=== PATIENT | male | born 1960 | race Caucasian/White ===

== ENCOUNTER 2022-06-24 23:15 | Inpatient (IN) | payer OTHER, SELFPAY ==
[2022-06-25 01:28] VITALS: BMI 31.4
[2022-06-25] MEDS ORDERED: Acetaminophen 325 MG TAB PO PRN (02:23)
[2022-06-25] MEDS ORDERED: Ondansetron ODT 4 MG TAB PO PRN (02:23)
[2022-06-25 06:34] LABS: #Basophils 0.1 thou/uL (0.0-0.2); #Eosinphils 0.7 thou/uL (0.0-0.7); #Lymphocytes 1.3 thou/uL (1.20-3.40); #Monocytes 1.2 thou/uL (0.11-0.59); %Basophils 0.4 % (0.0-1.0); %Eosinophils 5.6 % (0.0-10.0); %Lymphocytes 10.5 % (21.0-51.0); %Monocytes 9.5 % (0.0-10.0); Hemoglobin 12.2 g/dL (14.0-18.0); Mean Corpuscular HGB CONC 31.6 g/dL (32.0-36.0); Mean Corpuscular Hemoglobin 26.9 pg (27.0-31.0); Mean Corpuscular Volume 85.1 fL (78.0-98.0); Mean Platelet Volume 7.4 fL (7.4-10.4); Platelet Count 267 thou/uL (130-400); RBC Distribution Width 14.9 % (11.5-14.5); Red Blood Cell (RBC) Count 4.55 mill/uL (4.70-6.10); White Blood Cell (WBC) Count 12.2 thou/uL (4.8-10.8)
[2022-06-25] MEDS: Ibuprofen 200 MG TAB PO PRN ×3 (06:35→19:58)
[2022-06-25 06:44] LABS: Hemoglobin A1c 5.8 % (4.0-6.0)
[2022-06-25 07:05] LABS: ALT (SGPT) 15 U/L (8-55); AST (SGOT) 15 U/L (5-34); Albumin 3.4 g/dL (3.4-4.8); Alkaline Phosphatase 75 U/L (40-110); Anion Gap 14 mmol/L (10-20); BUN (Urea Nitrogen) 20 mg/dL (8.4-25.7); Bilirubin, Total 0.9 mg/dL (0.2-1.2); Calc. Creatinine Clearance 114 mL/min (70-130); Calcium 8.8 mg/dL (7.8-10.44); Carbon Dioxide 22 mmol/L (23-31); Cardiac Risk 2.6 (Less than 4.5); Chloride 100 mmol/L (98-107); Cholesterol 68 mg/dl (< 200 Desired); Estimated GFR 81; Glucose 100 mg/dL (80-115); HDL Cholesterol 26 mg/dL (>60 Neg Risk); LDL Cholesterol, Calculated 21 mg/dL; Potassium 4.4 mmol/L (3.5-5.1); Protein, Total 7.4 g/dL (5.8-8.1); Sodium 132 mmol/L (136-145); Triglycerides 104 mg/dL (Less than 150)
[2022-06-25 07:09] LABS: HIV (1/2) Antibody/Antigen Non-Reactive (NonReactive); HIV 1/2 INDEX 0.24 S/CO (<1.00)
[2022-06-25] MEDS: Doxycycline 100 MG CAP PO SCH ×3 (08:24→20:00)
[2022-06-25] MEDS: Enoxaparin Sodium 40 MG/0.4 ML SYRINGE SC SCH (08:25)
[2022-06-25 11:23] LABS: Syphilis Antibody Nonreactive (Nonreactive); Syphilis Antibody Index 0.05 S/CO (<1.00 Non-Reactive)
[2022-06-25] MEDS: Melatonin 3 MG TAB PO PRN (22:57)
[2022-06-26] MEDS ORDERED: hydrOXYzine 10 MG/5 ML UDCUP PO PRN (02:48)
[2022-06-26] MEDS: hydrOXYzine 25 MG TAB PO PRN (03:42)
[2022-06-26 06:45] LABS: #Eosinphils 0.7 thou/uL (0.0-0.7); #Lymphocytes 1.6 thou/uL (1.20-3.40); #Monocytes 0.9 thou/uL (0.11-0.59); #Neutrophils 9.9 thou/uL (1.40-6.50); %Basophils 0.3 % (0.0-1.0); %Eosinophils 5.6 % (0.0-10.0); %Monocytes 6.9 % (0.0-10.0); %Neutrophils 75.2 % (42.0-75.0); Hemoglobin 12.1 g/dL (14.0-18.0); Mean Corpuscular HGB CONC 31.8 g/dL (32.0-36.0); Mean Corpuscular Hemoglobin 27.2 pg (27.0-31.0); Mean Corpuscular Volume 85.4 fL (78.0-98.0); Mean Platelet Volume 7.2 fL (7.4-10.4); Platelet Count 244 thou/uL (130-400); RBC Distribution Width 14.6 % (11.5-14.5); Red Blood Cell (RBC) Count 4.45 mill/uL (4.70-6.10); White Blood Cell (WBC) Count 13.2 thou/uL (4.8-10.8)
[2022-06-26 06:59] LABS: Anion Gap 13 mmol/L (10-20); BUN (Urea Nitrogen) 18 mg/dL (8.4-25.7); Calc. Creatinine Clearance 130 mL/min (70-130); Calcium 8.7 mg/dL (7.8-10.44); Carbon Dioxide 24 mmol/L (23-31); Chloride 102 mmol/L (98-107); Estimated GFR 95; Glucose 106 mg/dL (80-115); Potassium 4.3 mmol/L (3.5-5.1); Sodium 135 mmol/L (136-145)
[2022-06-26 08:17] LABS: Hep B Surface AG-Rflx Sendout Negative (Negative); Hepatitis B Core Total Negative (Negative); Hepatitis B Surface AB-Sendout Reactive (.)
[2022-06-26] MEDS: Doxycycline 100 MG CAP PO SCH ×3 (08:26→20:03)
[2022-06-26] MEDS: Enoxaparin Sodium 40 MG/0.4 ML SYRINGE SC SCH ×2 (08:26→10:02)
[2022-06-26] MEDS: Melatonin 3 MG TAB PO PRN (20:03)
[2022-06-27] MEDS ORDERED: Nicotine 21 MG PATCH TD SCH (02:00)
[2022-06-27] MEDS: Ketorolac Tromethamine 30 MG/ML VIAL IVP SCH ×2 (02:07→08:56)
[2022-06-27] MEDS: hydrOXYzine 25 MG TAB PO PRN (02:08)
[2022-06-27] MEDS: Nicotine 21 MG PATCH TD SCH (02:09)
[2022-06-27] MEDS: Enoxaparin Sodium 40 MG/0.4 ML SYRINGE SC SCH (08:56)
[2022-06-27] MEDS: Doxycycline 100 MG CAP PO SCH ×3 (08:57→22:58)
[2022-06-27] MEDS ORDERED: FLUoxetine HCl 10 MG CAP PO SCH (14:00)
[2022-06-27] MEDS ORDERED: Haloperidol Lactate 5 MG/ML VIAL IM SCH (14:25)
[2022-06-27] MEDS: traZODone HCl 50 MG TAB PO SCH ×2 (20:45→22:59)
[2022-06-27] MEDS: Atorvastatin Calcium 40 MG TAB PO SCH ×2 (20:45→22:57)
[2022-06-27] MEDS: Azelastine 137 MCG/Spray 30 ML NS SCH ×2 (20:45→22:53)
[2022-06-27] MEDS: Gabapentin 300 MG CAP PO SCH ×2 (20:45→22:58)
[2022-06-27] MEDS: Famotidine 20 MG TAB PO SCH ×2 (20:45→22:58)
[2022-06-27] MEDS: levETIRAcetam 500 mg/5 ml Oral Solution PO SCH (22:53)
[2022-06-28] MEDS ORDERED: Lorazepam (BATCHED) 2 MG/ML SYR SLOW IVP PRN (00:49)
[2022-06-28] MEDS: Ketorolac Tromethamine 30 MG/ML VIAL IVP PRN ×2 (02:32→12:04)
[2022-06-28 06:35] LABS: #Eosinphils 0.4 thou/uL (0.0-0.7); #Lymphocytes 1.7 thou/uL (1.20-3.40); #Monocytes 0.9 thou/uL (0.11-0.59); #Neutrophils 9.1 thou/uL (1.40-6.50); %Basophils 0.2 % (0.0-1.0); %Eosinophils 3.7 % (0.0-10.0); %Lymphocytes 14.3 % (21.0-51.0); %Neutrophils 74.8 % (42.0-75.0); Hemoglobin 12.3 g/dL (14.0-18.0); Mean Corpuscular HGB CONC 31.9 g/dL (32.0-36.0); Mean Corpuscular Hemoglobin 27.2 pg (27.0-31.0); Mean Corpuscular Volume 85.4 fL (78.0-98.0); Mean Platelet Volume 7.7 fL (7.4-10.4); Platelet Count 271 thou/uL (130-400); RBC Distribution Width 14.8 % (11.5-14.5); Red Blood Cell (RBC) Count 4.51 mill/uL (4.70-6.10); White Blood Cell (WBC) Count 12.1 thou/uL (4.8-10.8)
[2022-06-28] MEDS: Gabapentin 300 MG CAP PO SCH ×2 (09:16→20:25)
[2022-06-28] MEDS: Aspirin 81 mg Enteric Coated Tablet PO SCH (09:16)
[2022-06-28] MEDS: metFORMIN 500 MG TAB PO SCH (09:16)
[2022-06-28] MEDS: Famotidine 20 MG TAB PO SCH ×2 (09:16→20:25)
[2022-06-28] MEDS: Doxycycline 100 MG CAP PO SCH ×2 (09:16→20:21)
[2022-06-28] MEDS: Tamsulosin HCl 0.4 MG CAP PO SCH (09:16)
[2022-06-28] MEDS: Polyethylene Glycol 3350 17 GM Packet PO SCH (09:17)
[2022-06-28] MEDS: Enoxaparin Sodium 40 MG/0.4 ML SYRINGE SC SCH (09:17)
[2022-06-28] MEDS: levETIRAcetam 500 mg/5 ml Oral Solution PO SCH ×2 (09:17→20:20)
[2022-06-28] MEDS: FLUoxetine HCl 20 MG CAP PO SCH (09:17)
[2022-06-28] MEDS: Azelastine 137 MCG/Spray 30 ML NS SCH ×2 (09:18→20:25)
[2022-06-28] MEDS ORDERED: levETIRAcetam 500 MG/5 ML VIAL SLOW IVP SCH ×2 (10:00→12:15)
[2022-06-28] MEDS: traZODone HCl 50 MG TAB PO SCH (20:21)
[2022-06-28] MEDS: Atorvastatin Calcium 40 MG TAB PO SCH (20:22)
[2022-06-28] MEDS: Nicotine 21 MG PATCH TD SCH (20:26)
[2022-06-28] MEDS: Melatonin 3 MG TAB PO PRN (20:39)
[2022-06-29] MEDS: Ketorolac Tromethamine 30 MG/ML VIAL IVP PRN ×2 (03:48→14:39)
[2022-06-29] MEDS: Gabapentin 300 MG CAP PO SCH ×2 (08:05→20:29)
[2022-06-29] MEDS: levETIRAcetam 500 mg/5 ml Oral Solution PO SCH ×2 (08:06→20:29)
[2022-06-29] MEDS: FLUoxetine HCl 20 MG CAP PO SCH (08:06)
[2022-06-29] MEDS: metFORMIN 500 MG TAB PO SCH (08:06)
[2022-06-29] MEDS: Aspirin 81 mg Enteric Coated Tablet PO SCH (08:06)
[2022-06-29] MEDS: Doxycycline 100 MG CAP PO SCH ×2 (08:06→20:30)
[2022-06-29] MEDS: Famotidine 20 MG TAB PO SCH ×2 (08:06→20:30)
[2022-06-29] MEDS: Tamsulosin HCl 0.4 MG CAP PO SCH (08:06)
[2022-06-29] MEDS: Polyethylene Glycol 3350 17 GM Packet PO SCH (08:07)
[2022-06-29] MEDS: Azelastine 137 MCG/Spray 30 ML NS SCH ×2 (08:07→20:30)
[2022-06-29] MEDS: Enoxaparin Sodium 40 MG/0.4 ML SYRINGE SC SCH (08:07)
[2022-06-29] MEDS: traZODone HCl 50 MG TAB PO SCH (20:29)
[2022-06-29] MEDS: Atorvastatin Calcium 40 MG TAB PO SCH (20:30)
[2022-06-29] MEDS: Nicotine 21 MG PATCH TD SCH (20:30)
[2022-06-30] MEDS: Gabapentin 300 MG CAP PO SCH ×2 (08:53→20:28)
[2022-06-30] MEDS: metFORMIN 500 MG TAB PO SCH (08:55)
[2022-06-30] MEDS: Tamsulosin HCl 0.4 MG CAP PO SCH (08:55)
[2022-06-30] MEDS: Doxycycline 100 MG CAP PO SCH ×2 (08:55→20:28)
[2022-06-30] MEDS: Aspirin 81 mg Enteric Coated Tablet PO SCH (08:56)
[2022-06-30] MEDS: Polyethylene Glycol 3350 17 GM Packet PO SCH ×2 (08:56→20:28)
[2022-06-30] MEDS: Enoxaparin Sodium 40 MG/0.4 ML SYRINGE SC SCH (08:56)
[2022-06-30] MEDS: Famotidine 20 MG TAB PO SCH ×2 (08:56→20:28)
[2022-06-30] MEDS: FLUoxetine HCl 20 MG CAP PO SCH (08:56)
[2022-06-30] MEDS: Ketorolac Tromethamine 30 MG/ML VIAL IVP PRN ×2 (08:58→18:18)
[2022-06-30] MEDS: Azelastine 137 MCG/Spray 30 ML NS SCH ×2 (08:58→20:28)
[2022-06-30] MEDS: levETIRAcetam 500 mg/5 ml Oral Solution PO SCH ×2 (09:07→20:28)
[2022-06-30] MEDS: Atorvastatin Calcium 40 MG TAB PO SCH (20:28)
[2022-06-30] MEDS: Nicotine 21 MG PATCH TD SCH (20:28)
[2022-06-30] MEDS: traZODone HCl 50 MG TAB PO SCH (20:28)
[2022-07-01] MEDS ORDERED: Morphine 4 MG/ML VIAL SLOW IVP SCH (02:30)
[2022-07-01] MEDS: Tamsulosin HCl 0.4 MG CAP PO SCH (08:33)
[2022-07-01] MEDS: FLUoxetine HCl 20 MG CAP PO SCH (08:33)
[2022-07-01] MEDS: Famotidine 20 MG TAB PO SCH ×2 (08:33→22:32)
[2022-07-01] MEDS: Doxycycline 100 MG CAP PO SCH ×2 (08:33→22:32)
[2022-07-01] MEDS: Gabapentin 300 MG CAP PO SCH ×2 (08:34→22:31)
[2022-07-01] MEDS: metFORMIN 500 MG TAB PO SCH (08:34)
[2022-07-01] MEDS: Aspirin 81 mg Enteric Coated Tablet PO SCH (08:34)
[2022-07-01] MEDS: Polyethylene Glycol 3350 17 GM Packet PO SCH ×2 (08:35→22:30)
[2022-07-01] MEDS: levETIRAcetam 500 mg/5 ml Oral Solution PO SCH ×2 (08:35→22:30)
[2022-07-01] MEDS: Enoxaparin Sodium 40 MG/0.4 ML SYRINGE SC SCH (08:36)
[2022-07-01] MEDS: Azelastine 137 MCG/Spray 30 ML NS SCH ×2 (14:43→22:32)
[2022-07-01] MEDS: Ketorolac Tromethamine 30 MG/ML VIAL IVP PRN ×2 (15:45→22:39)
[2022-07-01 20:56] VITALS: BP 102/65; TEMP 98.3
[2022-07-01] MEDS: Nicotine 21 MG PATCH TD SCH (22:30)
[2022-07-01] MEDS: traZODone HCl 50 MG TAB PO SCH (22:32)
[2022-07-01] MEDS: Atorvastatin Calcium 40 MG TAB PO SCH (22:32)
[2022-07-02] MEDS: Doxycycline 100 MG CAP PO SCH (09:12)
[2022-07-02] MEDS: Azelastine 137 MCG/Spray 30 ML NS SCH (09:12)
[2022-07-02] MEDS: Aspirin 81 mg Enteric Coated Tablet PO SCH (09:12)
[2022-07-02] MEDS: Enoxaparin Sodium 40 MG/0.4 ML SYRINGE SC SCH (09:12)
[2022-07-02] MEDS: metFORMIN 500 MG TAB PO SCH (09:13)
[2022-07-02] MEDS: Gabapentin 300 MG CAP PO SCH (09:13)
[2022-07-02] MEDS: levETIRAcetam 500 mg/5 ml Oral Solution PO SCH (09:13)
[2022-07-02] MEDS: FLUoxetine HCl 20 MG CAP PO SCH (09:13)
[2022-07-02] MEDS: Famotidine 20 MG TAB PO SCH (09:13)
[2022-07-02] MEDS: Tamsulosin HCl 0.4 MG CAP PO SCH (09:14)
[2022-07-02] MEDS: Polyethylene Glycol 3350 17 GM Packet PO SCH (09:14)
[2022-07-02] MEDS: Ketorolac Tromethamine 30 MG/ML VIAL IVP PRN (09:18)
[2022-07-02] MEDS ORDERED: Ketorolac Tromethamine 10 MG TAB PO PRN (09:53)
[2022-07-04] MEDS ORDERED: Adalimumab 40 MG/0.8 ML SYRINGE SC SCH (09:00)
== END 2022-07-02 12:36 | disposition short-term general hospital (02) | DRG 880 ==
LOC: INTOOBSV 23:15 → T4-A 23:15 → OBSVTOIN 06-25 16:01
PROVIDERS: ADMIT Family Medicine; ATTEND Family Medicine
DX: R45.851 Suicidal ideations (principal); L73.2 Hidradenitis suppurativa; F60.81 Narcissistic personality disorder; Z20.822 Contact with and (suspected) exposure to COVID-19; G47.33 Obstructive sleep apnea (adult) (pediatric); F17.210 Nicotine dependence, cigarettes, uncomplicated; F10.10 Alcohol abuse, uncomplicated; F20.9 Schizophrenia, unspecified; R45.850 Homicidal ideations; B07.9 Viral wart, unspecified; E11.9 Type 2 diabetes mellitus without complications; G40.909 Epilepsy, unspecified, not intractable, without status epilepticus; Z88.0 Allergy status to penicillin; Z79.82 Long term (current) use of aspirin; Z79.84 Long term (current) use of oral hypoglycemic drugs; Z79.899 Other long term (current) drug therapy
CPT/HCPCS: 36415; 80048; 80053; 80061; 83036; 85025; 86704; 86706; 86780; 87070; 87205; 87340; 87389; 87591; 87811; 96372; 97139; G0378; J1630; J1650; J1885; J1953; J2270; U0003; U0005

== ENCOUNTER 2022-08-14 17:00 | Inpatient (IN) | payer BC, OTHER ==
[~2022-08-14 17:00] MED LIST: Iopamidol-370 76% 500 ML 1 ML ONE
[2022-08-14] MEDS ORDERED: Clindamycin/D5W 900 mg/50 ml Premix Bag ONE (17:40)
[2022-08-14 18:11] LABS: #Eosinphils 0.1 thou/uL (0.0-0.7); #Monocytes 1.2 thou/uL (0.11-0.59); #Neutrophils 14.2 thou/uL (1.40-6.50); %Basophils 0.1 % (0.0-1.0); %Eosinophils 0.7 % (0.0-10.0); %Lymphocytes 11.2 % (21.0-51.0); %Monocytes 6.8 % (0.0-10.0); %Neutrophils 81.3 % (42.0-75.0); Hemoglobin 12.2 g/dL (14.0-18.0); Mean Corpuscular HGB CONC 31.4 g/dL (32.0-36.0); Mean Corpuscular Hemoglobin 26.1 pg (27.0-31.0); Mean Corpuscular Volume 83.1 fl (78.0-98.0); Mean Platelet Volume 7.5 fL (7.4-10.4); Platelet Count 323 10x3/uL (130-400); RBC Distribution Width 14.8 % (11.5-14.5); Red Blood Cell (RBC) Count 4.67 mill/uL (4.70-6.10); White Blood Cell (WBC) Count 17.4 10x3/uL (4.8-10.8)
[2022-08-14] MEDS ORDERED: Vancomycin 1.5 GRAM/300 ML BAG 1.5 GM in Premix Bag 1 BAG IVPB SCH (18:30)
[2022-08-14 18:34] LABS: ALT (SGPT) 13 U/L (8-55); AST (SGOT) 15 U/L (5-34); Albumin 3.3 g/dL (3.4-4.8); Alkaline Phosphatase 86 U/L (40-110); Anion Gap 14 mmol/L (10-20); BUN (Urea Nitrogen) 20 mg/dL (8.4-25.7); Bilirubin, Total 0.7 mg/dL (0.2-1.2); Calc. Creatinine Clearance 0 mL/min (70-130); Calcium 8.9 mg/dL (7.8-10.44); Carbon Dioxide 20 mmol/L (23-31); Chloride 109 mmol/L (98-107); Estimated GFR 73; Globulin 4.2 g/dL (2.4-3.5); Glucose 92 mg/dL (80-115); Potassium 4.7 mmol/L (3.5-5.1); Protein, Total 7.5 g/dL (5.8-8.1); Sodium 138 mmol/L (136-145)
[2022-08-14] MEDS ORDERED: Ondansetron PF 4 MG/2 ML Vial IVP PRN (20:15)
[2022-08-14] MEDS ORDERED: Acetaminophen 325 MG TAB PO PRN (20:15)
[2022-08-14] MEDS ORDERED: Ondansetron ODT 4 MG TAB SL PRN (20:15)
[2022-08-14 23:41] VITALS: BMI 32.0
[2022-08-15] MEDS ORDERED: Vancomycin 1 GM in Premix Bag 1 BAG IVPB SCH (01:00)
[2022-08-15 06:15] LABS: #Eosinphils 0.2 thou/uL (0.0-0.7); #Lymphocytes 1.3 thou/uL (1.20-3.40); #Monocytes 0.9 thou/uL (0.11-0.59); #Neutrophils 8.5 thou/uL (1.40-6.50); %Basophils 0.4 % (0.0-1.0); %Eosinophils 2.2 % (0.0-10.0); %Lymphocytes 11.7 % (21.0-51.0); %Monocytes 8.4 % (0.0-10.0); %Neutrophils 77.3 % (42.0-75.0); Hemoglobin 12.6 g/dL (14.0-18.0); Mean Corpuscular HGB CONC 31.5 g/dL (32.0-36.0); Mean Corpuscular Hemoglobin 26.5 pg (27.0-31.0); Mean Platelet Volume 7.8 fL (7.4-10.4); Platelet Count 237 10x3/uL (130-400); RBC Distribution Width 14.7 % (11.5-14.5); Red Blood Cell (RBC) Count 4.75 mill/uL (4.70-6.10)
[2022-08-15] MEDS ORDERED: Non-Formulary Item 1 EACH (Tadalafil [Tadalafil] 5 MG Tablet) PO PRN (06:17)
[2022-08-15 06:36] LABS: ALT (SGPT) 8 U/L (8-55); AST (SGOT) 13 U/L (5-34); Alkaline Phosphatase 75 U/L (40-110); Anion Gap 13 mmol/L (10-20); BUN (Urea Nitrogen) 16 mg/dL (8.4-25.7); Bilirubin, Total 0.8 mg/dL (0.2-1.2); Calc. Creatinine Clearance 131 mL/min (70-130); Calcium 8.6 mg/dL (7.8-10.44); Carbon Dioxide 19 mmol/L (23-31); Chloride 108 mmol/L (98-107); Estimated GFR 97; Globulin 3.7 g/dL (2.4-3.5); Glucose 92 mg/dL (80-115); Protein, Total 6.7 g/dL (5.8-8.1); Sodium 136 mmol/L (136-145)
[2022-08-15] MEDS: Enoxaparin Sodium 40 MG/0.4 ML SYRINGE SC SCH (08:40)
[2022-08-15] MEDS: Azelastine 137 MCG/Spray 30 ML NS SCH ×2 (08:40→20:30)
[2022-08-15] MEDS: metFORMIN 500 MG TAB PO SCH ×2 (08:42→20:32)
[2022-08-15] MEDS: FLUoxetine HCl 20 MG CAP PO SCH (08:42)
[2022-08-15] MEDS: Gabapentin 300 MG CAP PO SCH ×2 (08:42→20:32)
[2022-08-15] MEDS: Lisinopril 10 MG TAB PO SCH (08:42)
[2022-08-15] MEDS: Hydrochlorothiazide 25 MG TAB PO SCH (08:42)
[2022-08-15] MEDS: Aspirin 81 mg Enteric Coated Tablet PO SCH (08:43)
[2022-08-15] MEDS: levETIRAcetam 500 MG TAB PO SCH ×2 (08:43→20:31)
[2022-08-15] MEDS ORDERED: Meloxicam 15 MG TAB PO SCH (09:00)
[2022-08-15] MEDS ORDERED: Acetaminophen 325 MG TAB PO PRN (10:26)
[2022-08-15] MEDS ORDERED: Ibuprofen 600 MG TAB PO PRN (10:36)
[2022-08-15] MEDS ORDERED: Nystatin Powder 15 GM BOT TOP PRN (10:56)
[2022-08-15] MEDS ORDERED: Doxycycline 100 MG CAP PO SCH (11:04)
[2022-08-15] MEDS: Acetaminophen 325 MG TAB PO SCH ×3 (12:18→20:31)
[2022-08-15] MEDS ORDERED: VANCOMYCIN 1.25 GM/250 ML BAG 1.25 GM in Premix Bag 1 BAG IVPB SCH (13:00)
[2022-08-15] MEDS: Doxycycline 100 MG CAP PO SCH (20:31)
[2022-08-15] MEDS: traZODone HCl 50 MG TAB PO SCH (20:31)
[2022-08-15] MEDS: Tamsulosin HCl 0.4 MG CAP PO SCH (20:32)
[2022-08-15] MEDS: Atorvastatin Calcium 40 MG TAB PO SCH (20:32)
[2022-08-16] MEDS: Acetaminophen 325 MG TAB PO SCH ×4 (05:26→21:08)
[2022-08-16 08:25] LABS: #Eosinphils 0.3 thou/uL (0.0-0.7); #Lymphocytes 1.7 thou/uL (1.20-3.40); #Monocytes 1.2 thou/uL (0.11-0.59); #Neutrophils 14.2 thou/uL (1.40-6.50); %Basophils 0.1 % (0.0-1.0); %Lymphocytes 9.6 % (21.0-51.0); %Monocytes 6.9 % (0.0-10.0); %Neutrophils 81.4 % (42.0-75.0); Hemoglobin 12.4 g/dL (14.0-18.0); Mean Corpuscular HGB CONC 32.4 g/dL (32.0-36.0); Mean Corpuscular Volume 83.3 fl (78.0-98.0); Mean Platelet Volume 7.7 fL (7.4-10.4); Platelet Count 306 10x3/uL (130-400); RBC Distribution Width 14.6 % (11.5-14.5); Red Blood Cell (RBC) Count 4.61 mill/uL (4.70-6.10); White Blood Cell (WBC) Count 17.4 10x3/uL (4.8-10.8)
[2022-08-16] MEDS ORDERED: Nystatin Powder 15 GM BOT TOP SCH (09:00)
[2022-08-16] MEDS: Enoxaparin Sodium 40 MG/0.4 ML SYRINGE SC SCH (09:10)
[2022-08-16] MEDS: metFORMIN 500 MG TAB PO SCH ×2 (09:10→21:08)
[2022-08-16] MEDS: Lisinopril 10 MG TAB PO SCH (09:10)
[2022-08-16] MEDS: levETIRAcetam 500 MG TAB PO SCH ×2 (09:10→21:08)
[2022-08-16] MEDS: FLUoxetine HCl 20 MG CAP PO SCH (09:11)
[2022-08-16] MEDS: Azelastine 137 MCG/Spray 30 ML NS SCH ×2 (09:11→21:07)
[2022-08-16] MEDS: Doxycycline 100 MG CAP PO SCH ×2 (09:11→21:07)
[2022-08-16] MEDS: Aspirin 81 mg Enteric Coated Tablet PO SCH (09:11)
[2022-08-16] MEDS: Gabapentin 300 MG CAP PO SCH ×2 (09:11→21:07)
[2022-08-16] MEDS: Hydrochlorothiazide 25 MG TAB PO SCH (09:11)
[2022-08-16] MEDS: traZODone HCl 50 MG TAB PO SCH (21:08)
[2022-08-16] MEDS: Tamsulosin HCl 0.4 MG CAP PO SCH (21:08)
[2022-08-16] MEDS: Atorvastatin Calcium 40 MG TAB PO SCH (21:08)
[2022-08-17] MEDS: Acetaminophen 325 MG TAB PO SCH ×4 (04:37→20:56)
[2022-08-17] MEDS: Enoxaparin Sodium 40 MG/0.4 ML SYRINGE SC SCH (08:15)
[2022-08-17] MEDS: Aspirin 81 mg Enteric Coated Tablet PO SCH (08:16)
[2022-08-17] MEDS: Lisinopril 10 MG TAB PO SCH (08:17)
[2022-08-17] MEDS: levETIRAcetam 500 MG TAB PO SCH ×2 (08:18→20:49)
[2022-08-17] MEDS: Fluconazole 100 MG TAB PO SCH (08:18)
[2022-08-17] MEDS: Gabapentin 300 MG CAP PO SCH ×2 (08:18→20:49)
[2022-08-17] MEDS: FLUoxetine HCl 20 MG CAP PO SCH (08:18)
[2022-08-17] MEDS: metFORMIN 500 MG TAB PO SCH ×2 (08:18→20:51)
[2022-08-17] MEDS: Doxycycline 100 MG CAP PO SCH ×2 (08:18→20:49)
[2022-08-17] MEDS: Hydrochlorothiazide 25 MG TAB PO SCH (08:19)
[2022-08-17 08:24] LABS: #Basophils 0.1 thou/uL (0.0-0.2); #Eosinphils 0.3 thou/uL (0.0-0.7); #Lymphocytes 1.7 thou/uL (1.20-3.40); #Monocytes 1.2 thou/uL (0.11-0.59); #Neutrophils 10.4 thou/uL (1.40-6.50); %Basophils 0.4 % (0.0-1.0); %Eosinophils 2.2 % (0.0-10.0); %Lymphocytes 12.6 % (21.0-51.0); %Monocytes 8.6 % (0.0-10.0); %Neutrophils 76.2 % (42.0-75.0); Hemoglobin 11.6 g/dL (14.0-18.0); Mean Corpuscular HGB CONC 31.7 g/dL (32.0-36.0); Mean Corpuscular Hemoglobin 26.1 pg (27.0-31.0); Mean Corpuscular Volume 82.5 fl (78.0-98.0); Mean Platelet Volume 7.7 fL (7.4-10.4); Platelet Count 278 10x3/uL (130-400); RBC Distribution Width 14.5 % (11.5-14.5); Red Blood Cell (RBC) Count 4.45 mill/uL (4.70-6.10); White Blood Cell (WBC) Count 13.7 10x3/uL (4.8-10.8)
[2022-08-17] MEDS: Azelastine 137 MCG/Spray 30 ML NS SCH ×2 (08:25→20:56)
[2022-08-17] MEDS ORDERED: FLU VACC QS2022-23(6MOS UP)/PF 60 MCG/0.5 ML SYRINGE IM ONE (09:00)
[2022-08-17] MEDS: Atorvastatin Calcium 40 MG TAB PO SCH (20:49)
[2022-08-17] MEDS: Tamsulosin HCl 0.4 MG CAP PO SCH (20:50)
[2022-08-17] MEDS: traZODone HCl 50 MG TAB PO SCH (20:50)
[2022-08-18] MEDS: Acetaminophen 325 MG TAB PO SCH ×4 (06:09→21:49)
[2022-08-18] MEDS: Enoxaparin Sodium 40 MG/0.4 ML SYRINGE SC SCH (08:25)
[2022-08-18] MEDS: Polyethylene Glycol 3350 17 GM Packet PO SCH (08:25)
[2022-08-18] MEDS: Hydrochlorothiazide 25 MG TAB PO SCH (08:25)
[2022-08-18] MEDS: Doxycycline 100 MG CAP PO SCH ×2 (08:26→20:42)
[2022-08-18] MEDS: levETIRAcetam 500 MG TAB PO SCH ×2 (08:26→20:39)
[2022-08-18] MEDS: Fluconazole 100 MG TAB PO SCH (08:27)
[2022-08-18] MEDS: Gabapentin 300 MG CAP PO SCH ×2 (08:27→20:43)
[2022-08-18] MEDS: Lisinopril 10 MG TAB PO SCH (08:27)
[2022-08-18] MEDS: FLUoxetine HCl 20 MG CAP PO SCH (08:27)
[2022-08-18] MEDS: Aspirin 81 mg Enteric Coated Tablet PO SCH (08:27)
[2022-08-18] MEDS: metFORMIN 500 MG TAB PO SCH ×2 (08:27→20:44)
[2022-08-18] MEDS: Azelastine 137 MCG/Spray 30 ML NS SCH ×2 (08:28→20:43)
[2022-08-18 09:29] LABS: #Basophils 0.1 thou/uL (0.0-0.2); #Eosinphils 0.3 thou/uL (0.0-0.7); #Lymphocytes 1.8 thou/uL (1.20-3.40); #Neutrophils 10.3 thou/uL (1.40-6.50); %Basophils 0.4 % (0.0-1.0); %Eosinophils 2.1 % (0.0-10.0); %Lymphocytes 13.5 % (21.0-51.0); %Monocytes 7.3 % (0.0-10.0); %Neutrophils 76.6 % (42.0-75.0); Hemoglobin 12.3 g/dL (14.0-18.0); Mean Corpuscular HGB CONC 30.9 g/dL (32.0-36.0); Mean Corpuscular Hemoglobin 26.1 pg (27.0-31.0); Mean Corpuscular Volume 84.6 fl (78.0-98.0); Mean Platelet Volume 7.6 fL (7.4-10.4); Platelet Count 293 10x3/uL (130-400); RBC Distribution Width 14.5 % (11.5-14.5); Red Blood Cell (RBC) Count 4.71 mill/uL (4.70-6.10); White Blood Cell (WBC) Count 13.4 10x3/uL (4.8-10.8)
[2022-08-18 10:26] LABS: Anion Gap 12 mmol/L (10-20); BUN (Urea Nitrogen) 13 mg/dL (8.4-25.7); Calc. Creatinine Clearance 137 mL/min (70-130); Calcium 9.3 mg/dL (7.8-10.44); Carbon Dioxide 24 mmol/L (23-31); Chloride 105 mmol/L (98-107); Estimated GFR 99; Glucose 113 mg/dL (80-115); Potassium 4.2 mmol/L (3.5-5.1); Sodium 137 mmol/L (136-145)
[2022-08-18] MEDS: Ibuprofen 200 MG TAB PO SCH ×3 (11:14→21:48)
[2022-08-18] MEDS: traMADol HCl 50 MG TAB PO PRN (17:33)
[2022-08-18] MEDS: traZODone HCl 50 MG TAB PO SCH (20:39)
[2022-08-18] MEDS: Atorvastatin Calcium 40 MG TAB PO SCH (20:39)
[2022-08-18] MEDS: Tamsulosin HCl 0.4 MG CAP PO SCH (20:42)
[2022-08-19] MEDS: Acetaminophen 325 MG TAB PO SCH ×4 (04:55→22:00)
[2022-08-19] MEDS: Ibuprofen 200 MG TAB PO SCH ×4 (04:55→22:00)
[2022-08-19] MEDS: traMADol HCl 50 MG TAB PO PRN ×3 (05:51→21:59)
[2022-08-19 06:50] LABS: #Basophils 0.1 thou/uL (0.0-0.2); #Eosinphils 0.4 thou/uL (0.0-0.7); #Monocytes 1.2 thou/uL (0.11-0.59); #Neutrophils 11.2 thou/uL (1.40-6.50); %Basophils 0.6 % (0.0-1.0); %Eosinophils 2.9 % (0.0-10.0); %Lymphocytes 13.4 % (21.0-51.0); %Monocytes 8.3 % (0.0-10.0); %Neutrophils 74.8 % (42.0-75.0); Hemoglobin 11.4 g/dL (14.0-18.0); Mean Corpuscular HGB CONC 31.7 g/dL (32.0-36.0); Mean Corpuscular Hemoglobin 26.5 pg (27.0-31.0); Mean Corpuscular Volume 83.6 fl (78.0-98.0); Mean Platelet Volume 7.9 fL (7.4-10.4); Platelet Count 268 10x3/uL (130-400); RBC Distribution Width 14.6 % (11.5-14.5); Red Blood Cell (RBC) Count 4.31 mill/uL (4.70-6.10)
[2022-08-19] MEDS: Polyethylene Glycol 3350 17 GM Packet PO SCH (08:35)
[2022-08-19] MEDS: Enoxaparin Sodium 40 MG/0.4 ML SYRINGE SC SCH (08:36)
[2022-08-19] MEDS: Fluconazole 100 MG TAB PO SCH (08:36)
[2022-08-19] MEDS: levETIRAcetam 500 MG TAB PO SCH ×2 (08:36→20:41)
[2022-08-19] MEDS: Aspirin 81 mg Enteric Coated Tablet PO SCH (08:36)
[2022-08-19] MEDS: metFORMIN 500 MG TAB PO SCH ×2 (08:37→20:40)
[2022-08-19] MEDS: Hydrochlorothiazide 25 MG TAB PO SCH (08:37)
[2022-08-19] MEDS: Gabapentin 300 MG CAP PO SCH ×2 (08:37→20:41)
[2022-08-19] MEDS: Doxycycline 100 MG CAP PO SCH ×2 (08:37→20:40)
[2022-08-19] MEDS: Lisinopril 10 MG TAB PO SCH (08:38)
[2022-08-19] MEDS: Azelastine 137 MCG/Spray 30 ML NS SCH ×2 (08:38→20:42)
[2022-08-19] MEDS: FLUoxetine HCl 20 MG CAP PO SCH (08:38)
[2022-08-19] MEDS: traZODone HCl 50 MG TAB PO SCH (20:41)
[2022-08-19] MEDS: Tamsulosin HCl 0.4 MG CAP PO SCH (20:41)
[2022-08-19] MEDS: Atorvastatin Calcium 40 MG TAB PO SCH (20:42)
[2022-08-20] MEDS: Ibuprofen 200 MG TAB PO SCH ×4 (04:20→21:00)
[2022-08-20] MEDS: Acetaminophen 325 MG TAB PO SCH ×4 (04:20→22:29)
[2022-08-20] MEDS: traMADol HCl 50 MG TAB PO PRN ×3 (05:49→22:29)
[2022-08-20 06:44] LABS: #Basophils 0.1 thou/uL (0.0-0.2); #Eosinphils 0.5 thou/uL (0.0-0.7); #Lymphocytes 1.9 thou/uL (1.20-3.40); #Monocytes 1.2 thou/uL (0.11-0.59); #Neutrophils 11.1 thou/uL (1.40-6.50); %Basophils 0.4 % (0.0-1.0); %Eosinophils 3.2 % (0.0-10.0); %Lymphocytes 12.8 % (21.0-51.0); %Monocytes 7.8 % (0.0-10.0); %Neutrophils 75.8 % (42.0-75.0); Hemoglobin 11.6 g/dL (14.0-18.0); Mean Corpuscular HGB CONC 30.3 g/dL (32.0-36.0); Mean Corpuscular Hemoglobin 25.7 pg (27.0-31.0); Mean Corpuscular Volume 84.8 fl (78.0-98.0); Mean Platelet Volume 7.5 fL (7.4-10.4); Platelet Count 286 10x3/uL (130-400); RBC Distribution Width 14.6 % (11.5-14.5); Red Blood Cell (RBC) Count 4.51 mill/uL (4.70-6.10); White Blood Cell (WBC) Count 14.6 10x3/uL (4.8-10.8)
[2022-08-20 07:08] LABS: Anion Gap 13 mmol/L (10-20); BUN (Urea Nitrogen) 24 mg/dL (8.4-25.7); Calc. Creatinine Clearance 112 mL/min (70-130); Calcium 9.3 mg/dL (7.8-10.44); Carbon Dioxide 26 mmol/L (23-31); Chloride 104 mmol/L (98-107); Estimated GFR 86; Glucose 99 mg/dL (80-115); Potassium 4.6 mmol/L (3.5-5.1); Sodium 138 mmol/L (136-145)
[2022-08-20] MEDS ORDERED: Senokot 8.6 MG TAB PO PRN (08:25)
[2022-08-20] MEDS: Polyethylene Glycol 3350 17 GM Packet PO SCH (10:02)
[2022-08-20] MEDS: Aspirin 81 mg Enteric Coated Tablet PO SCH (10:03)
[2022-08-20] MEDS: Enoxaparin Sodium 40 MG/0.4 ML SYRINGE SC SCH (10:03)
[2022-08-20] MEDS: FLUoxetine HCl 20 MG CAP PO SCH (10:03)
[2022-08-20] MEDS: Hydrochlorothiazide 25 MG TAB PO SCH (10:03)
[2022-08-20] MEDS: Gabapentin 300 MG CAP PO SCH ×2 (10:03→20:56)
[2022-08-20] MEDS: Doxycycline 100 MG CAP PO SCH ×2 (10:03→20:56)
[2022-08-20] MEDS: metFORMIN 500 MG TAB PO SCH ×2 (10:04→20:57)
[2022-08-20] MEDS: Fluconazole 100 MG TAB PO SCH (10:04)
[2022-08-20] MEDS: levETIRAcetam 500 MG TAB PO SCH ×2 (10:04→20:57)
[2022-08-20] MEDS: Lisinopril 10 MG TAB PO SCH (10:04)
[2022-08-20] MEDS: Azelastine 137 MCG/Spray 30 ML NS SCH ×2 (10:05→20:55)
[2022-08-20] MEDS: Atorvastatin Calcium 40 MG TAB PO SCH (20:56)
[2022-08-20] MEDS: Tamsulosin HCl 0.4 MG CAP PO SCH (20:58)
[2022-08-20] MEDS: traZODone HCl 50 MG TAB PO SCH (20:58)
[2022-08-21] MEDS: Ibuprofen 200 MG TAB PO SCH ×4 (04:14→22:23)
[2022-08-21] MEDS: traMADol HCl 50 MG TAB PO PRN ×4 (04:14→22:24)
[2022-08-21] MEDS: Acetaminophen 325 MG TAB PO SCH ×4 (04:15→22:25)
[2022-08-21 07:16] LABS: #Basophils 0.1 thou/uL (0.0-0.2); #Eosinphils 0.4 thou/uL (0.0-0.7); #Lymphocytes 1.9 thou/uL (1.20-3.40); #Monocytes 1.2 thou/uL (0.11-0.59); #Neutrophils 10.1 thou/uL (1.40-6.50); %Basophils 0.5 % (0.0-1.0); %Eosinophils 2.8 % (0.0-10.0); %Lymphocytes 13.7 % (21.0-51.0); %Monocytes 8.9 % (0.0-10.0); Mean Corpuscular HGB CONC 31.2 g/dL (32.0-36.0); Mean Corpuscular Hemoglobin 26.4 pg (27.0-31.0); Mean Corpuscular Volume 84.5 fl (78.0-98.0); Mean Platelet Volume 7.6 fL (7.4-10.4); Platelet Count 308 10x3/uL (130-400); RBC Distribution Width 14.4 % (11.5-14.5); Red Blood Cell (RBC) Count 4.56 mill/uL (4.70-6.10); White Blood Cell (WBC) Count 13.6 10x3/uL (4.8-10.8)
[2022-08-21] MEDS: levETIRAcetam 500 MG TAB PO SCH ×2 (09:56→22:22)
[2022-08-21] MEDS: Lisinopril 10 MG TAB PO SCH (09:56)
[2022-08-21] MEDS: FLUoxetine HCl 20 MG CAP PO SCH (09:56)
[2022-08-21] MEDS: Gabapentin 300 MG CAP PO SCH ×2 (09:56→22:21)
[2022-08-21] MEDS: metFORMIN 500 MG TAB PO SCH ×2 (09:56→22:23)
[2022-08-21] MEDS: Fluconazole 100 MG TAB PO SCH (09:56)
[2022-08-21] MEDS: Aspirin 81 mg Enteric Coated Tablet PO SCH (09:56)
[2022-08-21] MEDS: Doxycycline 100 MG CAP PO SCH ×2 (09:57→22:21)
[2022-08-21] MEDS: Polyethylene Glycol 3350 17 GM Packet PO SCH (09:57)
[2022-08-21] MEDS: Azelastine 137 MCG/Spray 30 ML NS SCH ×2 (09:57→22:21)
[2022-08-21] MEDS: Hydrochlorothiazide 25 MG TAB PO SCH (09:57)
[2022-08-21] MEDS: Enoxaparin Sodium 40 MG/0.4 ML SYRINGE SC SCH (09:57)
[2022-08-21] MEDS: traZODone HCl 50 MG TAB PO SCH (22:20)
[2022-08-21] MEDS: Atorvastatin Calcium 40 MG TAB PO SCH (22:22)
[2022-08-21] MEDS: Tamsulosin HCl 0.4 MG CAP PO SCH (22:23)
[2022-08-22] MEDS: traMADol HCl 50 MG TAB PO PRN ×4 (04:27→22:27)
[2022-08-22] MEDS: Ibuprofen 200 MG TAB PO SCH ×4 (04:28→22:26)
[2022-08-22] MEDS: Acetaminophen 325 MG TAB PO SCH ×4 (04:28→22:28)
[2022-08-22 06:25] LABS: #Basophils 0.1 thou/uL (0.0-0.2); #Eosinphils 0.4 thou/uL (0.0-0.7); #Lymphocytes 2.2 thou/uL (1.20-3.40); #Monocytes 1.4 thou/uL (0.11-0.59); #Neutrophils 11.1 thou/uL (1.40-6.50); %Basophils 0.5 % (0.0-1.0); %Eosinophils 2.9 % (0.0-10.0); %Lymphocytes 14.4 % (21.0-51.0); %Neutrophils 73.1 % (42.0-75.0); Hemoglobin 11.3 g/dL (14.0-18.0); Mean Corpuscular HGB CONC 30.7 g/dL (32.0-36.0); Mean Corpuscular Hemoglobin 25.4 pg (27.0-31.0); Mean Corpuscular Volume 82.7 fl (78.0-98.0); Mean Platelet Volume 7.7 fL (7.4-10.4); Platelet Count 302 10x3/uL (130-400); RBC Distribution Width 14.5 % (11.5-14.5); Red Blood Cell (RBC) Count 4.44 mill/uL (4.70-6.10); White Blood Cell (WBC) Count 15.2 10x3/uL (4.8-10.8)
[2022-08-22 06:42] LABS: Anion Gap 13 mmol/L (10-20); BUN (Urea Nitrogen) 29 mg/dL (8.4-25.7); Calc. Creatinine Clearance 106 mL/min (70-130); Calcium 9.1 mg/dL (7.8-10.44); Carbon Dioxide 25 mmol/L (23-31); Chloride 104 mmol/L (98-107); Estimated GFR 80; Glucose 94 mg/dL (80-115); Potassium 4.7 mmol/L (3.5-5.1); Sodium 137 mmol/L (136-145)
[2022-08-22] MEDS: Aspirin 81 mg Enteric Coated Tablet PO SCH (09:27)
[2022-08-22] MEDS: levETIRAcetam 500 MG TAB PO SCH ×2 (09:28→22:26)
[2022-08-22] MEDS: Hydrochlorothiazide 25 MG TAB PO SCH (09:29)
[2022-08-22] MEDS: Fluconazole 100 MG TAB PO SCH (09:30)
[2022-08-22] MEDS: Doxycycline 100 MG CAP PO SCH ×2 (09:31→22:26)
[2022-08-22] MEDS: FLUoxetine HCl 20 MG CAP PO SCH (09:31)
[2022-08-22] MEDS: Gabapentin 300 MG CAP PO SCH ×2 (09:31→22:24)
[2022-08-22] MEDS: Lisinopril 10 MG TAB PO SCH (09:31)
[2022-08-22] MEDS: metFORMIN 500 MG TAB PO SCH ×2 (09:32→22:26)
[2022-08-22] MEDS: Polyethylene Glycol 3350 17 GM Packet PO SCH (09:32)
[2022-08-22] MEDS: Azelastine 137 MCG/Spray 30 ML NS SCH ×2 (09:32→22:37)
[2022-08-22] MEDS: Enoxaparin Sodium 40 MG/0.4 ML SYRINGE SC SCH (09:38)
[2022-08-22] MEDS: traZODone HCl 50 MG TAB PO SCH (22:25)
[2022-08-22] MEDS: Atorvastatin Calcium 40 MG TAB PO SCH (22:25)
[2022-08-22] MEDS: Tamsulosin HCl 0.4 MG CAP PO SCH (22:26)
[2022-08-23] MEDS: Acetaminophen 325 MG TAB PO SCH ×4 (04:29→21:07)
[2022-08-23] MEDS: Ibuprofen 200 MG TAB PO SCH ×4 (04:30→21:06)
[2022-08-23] MEDS: traMADol HCl 50 MG TAB PO PRN ×4 (04:30→23:08)
[2022-08-23] MEDS ORDERED: Preparation H Ointment 28 GM TUBE TOP PRN (08:55)
[2022-08-23] MEDS: Gabapentin 300 MG CAP PO SCH ×2 (09:30→21:06)
[2022-08-23] MEDS: metFORMIN 500 MG TAB PO SCH ×2 (09:31→21:10)
[2022-08-23] MEDS: Fluconazole 100 MG TAB PO SCH (09:31)
[2022-08-23] MEDS: levETIRAcetam 500 MG TAB PO SCH ×2 (09:32→21:07)
[2022-08-23] MEDS: FLUoxetine HCl 20 MG CAP PO SCH (09:33)
[2022-08-23] MEDS: Hydrochlorothiazide 25 MG TAB PO SCH (09:33)
[2022-08-23] MEDS: Aspirin 81 mg Enteric Coated Tablet PO SCH (09:33)
[2022-08-23] MEDS: Doxycycline 100 MG CAP PO SCH ×2 (09:33→21:10)
[2022-08-23] MEDS: Azelastine 137 MCG/Spray 30 ML NS SCH ×2 (09:34→21:11)
[2022-08-23] MEDS: Polyethylene Glycol 3350 17 GM Packet PO SCH (09:34)
[2022-08-23] MEDS: Lisinopril 10 MG TAB PO SCH (09:34)
[2022-08-23] MEDS: Enoxaparin Sodium 40 MG/0.4 ML SYRINGE SC SCH (11:25)
[2022-08-23] MEDS: Tamsulosin HCl 0.4 MG CAP PO SCH (21:06)
[2022-08-23] MEDS: traZODone HCl 50 MG TAB PO SCH (21:06)
[2022-08-23] MEDS: Atorvastatin Calcium 40 MG TAB PO SCH (21:10)
[2022-08-24] MEDS: Ibuprofen 200 MG TAB PO SCH ×4 (05:00→20:40)
[2022-08-24] MEDS: Acetaminophen 325 MG TAB PO SCH ×4 (05:00→20:39)
[2022-08-24] MEDS: traMADol HCl 50 MG TAB PO PRN ×2 (05:57→20:41)
[2022-08-24] MEDS: Aspirin 81 mg Enteric Coated Tablet PO SCH (08:21)
[2022-08-24] MEDS: Doxycycline 100 MG CAP PO SCH ×2 (08:21→20:42)
[2022-08-24] MEDS: Fluconazole 100 MG TAB PO SCH (08:22)
[2022-08-24] MEDS: levETIRAcetam 500 MG TAB PO SCH ×2 (08:22→20:42)
[2022-08-24] MEDS: Lisinopril 10 MG TAB PO SCH (08:22)
[2022-08-24] MEDS: FLUoxetine HCl 20 MG CAP PO SCH (08:22)
[2022-08-24] MEDS: Hydrochlorothiazide 25 MG TAB PO SCH (08:22)
[2022-08-24] MEDS: Gabapentin 300 MG CAP PO SCH ×2 (08:22→20:42)
[2022-08-24] MEDS: metFORMIN 500 MG TAB PO SCH ×2 (08:22→20:41)
[2022-08-24] MEDS: Enoxaparin Sodium 40 MG/0.4 ML SYRINGE SC SCH (08:23)
[2022-08-24] MEDS: Polyethylene Glycol 3350 17 GM Packet PO SCH (08:23)
[2022-08-24] MEDS: Azelastine 137 MCG/Spray 30 ML NS SCH ×2 (08:27→20:43)
[2022-08-24] MEDS ORDERED: guaiFENesin/DM ER PO PRN (13:31)
[2022-08-24] MEDS: Benzonatate 100 MG CAP PO PRN ×2 (17:09→20:41)
[2022-08-24] MEDS: Tamsulosin HCl 0.4 MG CAP PO SCH (20:41)
[2022-08-24] MEDS: traZODone HCl 50 MG TAB PO SCH (20:41)
[2022-08-24] MEDS: Atorvastatin Calcium 40 MG TAB PO SCH (20:42)
[2022-08-25] MEDS: Acetaminophen 325 MG TAB PO SCH ×3 (03:46→16:38)
[2022-08-25] MEDS: traMADol HCl 50 MG TAB PO PRN ×2 (03:46→16:40)
[2022-08-25] MEDS: Ibuprofen 200 MG TAB PO SCH ×3 (03:46→16:38)
[2022-08-25 08:13] VITALS: BP 95/60; TEMP 97.6
[2022-08-25] MEDS: metFORMIN 500 MG TAB PO SCH (09:53)
[2022-08-25] MEDS: levETIRAcetam 500 MG TAB PO SCH (09:53)
[2022-08-25] MEDS: Hydrochlorothiazide 25 MG TAB PO SCH (09:54)
[2022-08-25] MEDS: Azelastine 137 MCG/Spray 30 ML NS SCH (09:54)
[2022-08-25] MEDS: Fluconazole 100 MG TAB PO SCH (09:54)
[2022-08-25] MEDS: FLUoxetine HCl 20 MG CAP PO SCH (09:54)
[2022-08-25] MEDS: Gabapentin 300 MG CAP PO SCH (09:54)
[2022-08-25] MEDS: Aspirin 81 mg Enteric Coated Tablet PO SCH (09:54)
[2022-08-25] MEDS: Doxycycline 100 MG CAP PO SCH (09:54)
[2022-08-25] MEDS: Lisinopril 10 MG TAB PO SCH (09:55)
[2022-08-25] MEDS: Enoxaparin Sodium 40 MG/0.4 ML SYRINGE SC SCH (09:55)
[2022-08-25] MEDS: Polyethylene Glycol 3350 17 GM Packet PO SCH (09:55)
== END 2022-08-25 20:24 | disposition home or self-care (01) | DRG 607 ==
LOC: ERS 17:00 → T4-B 18:35
PROVIDERS: ADMIT Emergency Medicine; ATTEND Emergency Medicine
DX: L73.2 Hidradenitis suppurativa (principal); J90 Pleural effusion, not elsewhere classified; F60.81 Narcissistic personality disorder; Z66 Do not resuscitate; Z20.822 Contact with and (suspected) exposure to COVID-19; D64.9 Anemia, unspecified; N43.3 Hydrocele, unspecified; F17.210 Nicotine dependence, cigarettes, uncomplicated; B37.9 Candidiasis, unspecified; Z79.84 Long term (current) use of oral hypoglycemic drugs; Z79.899 Other long term (current) drug therapy; Z79.82 Long term (current) use of aspirin; Z91.14 Patient's other noncompliance with medication regimen; Z88.0 Allergy status to penicillin
CPT/HCPCS: 36415; 36416; 71260; 74177; 80048; 80053; 83605; 85025; 87040; 87811; 90471; 90686; 90732; 96365; 96367; 97139; G0008; G0009; J1650; J3370; J3490; Q9967; U0003; U0005